=== PATIENT | male | born 1950 | race Caucasian/White ===

== ENCOUNTER 2017-08-30 12:15 | Inpatient (IN) | payer MEDICARE ==
[~2017-08-30] VITALS: Ht 172.7 cm; Wt 72.6 kg
[2017-08-30] MEDS ORDERED: ASPIRIN 325 MG TABLET ONE (12:36)
[2017-08-30] MEDS ORDERED: NITROGLYCERIN OINT 1 GM PACKET. ONE (12:36)
[2017-08-30] MEDS ORDERED: ALPRAZolam 0.25 MG TABLET ONE (12:37)
--- NOTE | 2017-08-30 12:40 | EKG ---
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
[2017-08-30 12:42] LABS: BASO # 0.1 x10^3/uL (0.0-0.2); BASO % 1 % (0-3); EOS # 0.1 x10^3/uL (0.0-0.7); EOS % 2 % (0-3); HEMATOCRIT 45.5 % (39.0-53.0); HEMOGLOBIN 16.1 g/dL (13.0-17.5); LYMPH # 2.3 x10^3/uL (1.0-4.8); LYMPH % 29 % (24-48); MEAN CORPUSCULAR HEMOGLOBIN 32 pg (25-35); MEAN CORPUSCULAR HGB CONC 35 g/dL (31-37); MEAN CORPUSCULAR VOLUME 92 fL (79-100); MONO # 0.6 x10^3/uL (0.0-1.1); MONO % 7 % (0-9); NEUT # 4.9 x10^3uL (1.8-7.7); NEUT % 62 % (31-73); PLATELET COUNT 232 x10^3/uL (140-400); RED BLOOD COUNT 4.96 x10^6/uL (4.30-5.70); RED CELL DISTRIBUTION WIDTH 13.5 % (11.5-14.5)
[2017-08-30] MEDS ORDERED: ASPIRIN 325 MG TABLET PO ONE (12:45)
[2017-08-30] MEDS ORDERED: ALPRAZolam 0.25 MG TABLET PO ONE (12:45)
[2017-08-30] MEDS ORDERED: NITROGLYCERIN OINT 1 GM PACKET. TP ONE (12:45)
--- NOTE | 2017-08-30 12:49 | RAD ---
Single view chest History:Chest pain for one day An AP view of the chest is submitted. Comparison: None. Findings: There is no significant infiltrate, pleural effusion, or pneumothorax. The pericardial cardiac silhouette is within normal limits in size. There is a tortuous thoracic aorta. Impression: There is no evidence of acute cardiopulmonary disease.
[2017-08-30 12:57] LABS: ALBUMIN 3.8 g/dL (3.4-5.0); ALBUMIN/GLOBULIN RATIO 1.1 (1.0-1.7); CALCIUM 10.1 mg/dL (8.5-10.1); GFR 74.8; POTASSIUM 3.9 mmol/L (3.5-5.1); TOTAL PROTEIN 7.4 g/dL (6.4-8.2)
[2017-08-30] MEDS ORDERED: ONDANSETRON PF 4 MG/2 ML VIAL. IV PRN (13:45)
[2017-08-30] MEDS ORDERED: ACETAMINOPHEN 325 MG TABLET PO PRN (13:45)
[2017-08-30] MEDS ORDERED: NITROGLYCERIN SUBLINGUAL 0.4 MG BOTTLE OF 25. SL PRN (13:45)
--- NOTE | 2017-08-30 13:46 | PHYS DOC ---
Adult General Chief Complaint Chief Complaint: CHEST PAIN HPI HPI Patient is a 66-year-old gentleman who has a history significant for coronary disease and has had 2 cardiac catheter in the past but has never received any stents presents here today complaining of chest pressure that started while he was shopping approximately noon time today. Patient reports that he had a cardiac catheter in [facility] by Dr. Argueta 2. The first cardiac catheterization he was told that he did not in any stents or intervention. The second catheterization which was approximately 7 years ago at the [facility] he was told that he is plaque in his artery was too long for a stent and the decision was made to put him on medical management only. Patient presents today with midsternal chest discomfort. Reports pain is been constant. Pain is not exacerbated or relieved with rest inspiration and cough. Patient reports no nausea or diaphoresis shortness of breath or vomiting. Patient denies any pain radiating to his arms or legs. Patient denies any other symptomatology. Patient has any fevers shakes chills nausea vomiting diarrhea chest pain shortness of breath cough cold rhinorrhea. Review of systems: Constitutional: Denies fever or chills Eyes: Denies change in visual acuity, redness, or eye pain HENT: Denies nasal congestion or sore throat Respiratory: Denies cough or shortness of breath All other systems were reviewed and found to be within normal limits, except as documented in this note. Physical exam: Constitutional: Well developed, well nourished, no acute distress, non-toxic appearance. HENT: Normocephalic, atraumatic, bilateral external ears normal, nose normal. Eyes: PERRLA, EOMI, conjunctiva normal, no discharge. Neck: Normal range of motion, no tenderness, supple, no stridor. Cardiovascular: Heart rate regular rhythm, Lungs & Thorax: Bilateral breath sounds clear to auscultation Abdomen: No abdominal distention. Skin: Warm, dry, no erythema, no rash. Back: Normal spinal curvature Extremities: No tenderness, no cyanosis, no clubbing, ROM intact, no edema. Neurologic: Alert and oriented X 3, normal motor function, normal sensory function, no focal deficits noted. Psychologic: Affect normal, judgement normal, mood normal. Patient's ER physical exam was most unremarkable: EKG as interpreted by ER physician reveals: Normal sinus bradycardia at [address]-T wave abnormalities. No evidence of ST elevation MO. Chest x-ray as interpreted by ER physician reveals: No infiltrates or effusions. Labs reviewed: Assessment and plan: 1. 66-year-old gentleman with atypical chest discomfort. Pain appears to be atypical nature for cardiac, GI, pleuritic chest pain. Given the patient's significant cardiac history and a significant family history for coronary disease I discussed with the family/ regarding her comfort level. Patient will be admitted to the hospital for further cardiac evaluation and consultation. Patient's enzymes and EKG here in the ED thus far are unremarkable. Patient reports that the pain is been constant with no change with the Nitropaste or aspirin. Patient's chest x-ray reveals no cause for the discomfort. Review of Systems Review of Systems Critical care time of 35 minutes reutilized and treatment and management of this patient's chest pain. Patient has significant cardiac risk factors. We have placed on the monitor we have evaluated him for any cardiac dysrhythmias. Current Medications Current Medications Current Medications Medications (Trade) Dose Ordered Sig/Radha Start Time Stop Time Status Last Admin Dose Admin Alprazolam (Xanax) 0.5 mg 1X ONCE 08/30/17 12:45 08/30/17 12:46 DC 08/30/17 12:42 0.5 MG Aspirin (Leonides Aspirin) 325 mg 1X ONCE 08/30/17 12:45 08/30/17 12:46 DC 08/30/17 12:42 325 MG Nitroglycerin (Nitro-Bid Oint) 1 inch 1X ONCE 08/30/17 12:45 08/30/17 12:46 DC 08/30/17 12:41 1 INCH Allergies Allergies Allergies Coded Allergies Type Severity Reaction Last Updated Verified No Known Drug Allergies 08/30/17 No Current Patient Data Vital Signs Vital Signs Date Time Temp Pulse Resp B/P (MAP) Pulse Ox O2 Delivery O2 Flow Rate FiO2 08/30/17 12:41 46 156/93 Lab Results Laboratory Tests Test 08/30/17 12:20 White Blood Count 8.0 x10^3/uL (4.0-11.0) Red Blood Count 4.96 x10^6/uL (4.30-5.70) Hemoglobin 16.1 g/dL (13.0-17.5) Hematocrit 45.5 % (39.0-53.0) Mean Corpuscular Volume 92 fL (79-100) Mean Corpuscular Hemoglobin 32 pg (25-35) Mean Corpuscular Hemoglobin Concent 35 g/dL (31-37) Red Cell Distribution Width 13.5 % (11.5-14.5) Platelet Count 232 x10^3/uL (140-400) Neutrophils (%) (Auto) 62 % (31-73) Lymphocytes (%) (Auto) 29 % (24-48) Monocytes (%) (Auto) 7 % (0-9) Eosinophils (%) (Auto) 2 % (0-3) Basophils (%) (Auto) 1 % (0-3) Neutrophils # (Auto) 4.9 x10^3uL (1.8-7.7) Lymphocytes # (Auto) 2.3 x10^3/uL (1.0-4.8) Monocytes # (Auto) 0.6 x10^3/uL (0.0-1.1) Eosinophils # (Auto) 0.1 x10^3/uL (0.0-0.7) Basophils # (Auto) 0.1 x10^3/uL (0.0-0.2) Sodium Level 141 mmol/L (136-145) Potassium Level 3.9 mmol/L (3.5-5.1) Chloride Level 106 mmol/L (98-107) Carbon Dioxide Level 25 mmol/L (21-32) Anion Gap 10 (6-14) Blood Urea Nitrogen 16 mg/dL (8-26) Creatinine 1.0 mg/dL (0.7-1.3) Estimated GFR (Cockcroft-Gault) 74.8 BUN/Creatinine Ratio 16 (6-20) Glucose Level 88 mg/dL (70-99) Calcium Level 10.1 mg/dL (8.5-10.1) Total Bilirubin 1.0 mg/dL (0.2-1.0) Aspartate Amino Transferase (AST) 25 U/L (15-37) Alanine Aminotransferase (ALT) 52 U/L (16-63) Alkaline Phosphatase 94 U/L (46-116) Troponin I Quantitative < 0.017 ng/mL (0-0.055) LQ-Uva-J-Type Natriuretic Peptide 53 pg/mL (0-124) Total Protein 7.4 g/dL (6.4-8.2) Albumin 3.8 g/dL (3.4-5.0) Albumin/Globulin Ratio 1.1 (1.0-1.7) EKG EKG [] Radiology/Procedures Radiology/Procedures [] Course & Med Decision Making Course & Med Decision Making Pertinent Labs and Imaging studies reviewed. (See chart for details) [] Dragon Disclaimer Dragon Disclaimer This electronic medical record was generated, in whole or in part, using a voice recognition dictation system. Departure Departure: Impression: Primary Impression: Chest pain Additional Impression: Unstable angina Disposition: ADMITTED INPATIENT Admitting Physician: Jono Martin Condition: STABLE Referrals: KRISTI BOX (PCP) Problem Qualifiers ANGELA LR MD Aug 30, 2017 13:46
[2017-08-30 14:50] VITALS: BP 124/72
[2017-08-30] MEDS: MORPHINE SULFATE 2 MG/ML DISP.SYRIN. IV PRN ×2 (15:25→20:45)
--- NOTE | 2017-08-30 16:47 | HP ---
ADMIT DATE: 08/30/2017 HISTORY OF PRESENT ILLNESS: The patient is a 66-year-old male patient who was here visiting his son, and around 11:30 this morning, he started complaining of chest pain, mostly in the lower chest and epigastric area. His pain, according to him, was constant, is not exacerbated or relieved with rest or inspiration or cough. He denied any nausea or vomiting. Denied any diaphoresis or shortness of breath or vomiting. He denied any pain radiating to his arms or legs. He was evaluated in the Emergency Room, has had his first cardiac enzyme, was less than 0.017, and apparently has had an EKG done which was unremarkable. The patient was admitted to rule out myocardial infarction. We will do 2 more sets of cardiac enzyme, consult the Cardiology team and check his fasting lipid profile. He did have another episode of chest pain while inpatient, received IV morphine and the pain has subsided. PAST MEDICAL HISTORY: Significant for hyperlipidemia, obstructive sleep apnea, cognitive impairment, benign prostatic hypertrophy. 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 ALLERGIES: He has no known drug allergies. MEDICATIONS: He is currently on following medications: He is on Tylenol 650 mg every 4 hours. He is on Namenda 10 mg twice a day, Zoloft 150 mg once a day, atorvastatin 80 mg twice a week, aspirin 81 mg tablet, he takes 2 tablets once a day. He is on omega 3 fatty acids, CoQ10, probiotic and Metamucil. FAMILY HISTORY: He is 1 of 10 children, 2 brothers are older and the rest are younger than him. There is a very strong family history of premature coronary artery disease. His father at the age of 52 because of myocardial infarction. One of his younger brothers has CABG at the age of 46 and one of his older brothers has angioplasty and stent deployment and one of his sisters has myocardial infarction. His mother at age of 84 because of congestive heart failure. SOCIAL HISTORY: He is , has 2 sons. Never smoked. Drinks alcohol occasionally. 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 REVIEW OF SYSTEMS: The patient denied any blurring of vision, cataract, glaucoma or macular degeneration. Denied any earache, tinnitus or sensorineural deafness. Denied any nosebleeds, stuffy nose or postnasal drip. Denied any sore throat, sore tongue, toothache, hoarseness of voice or difficulty swallowing. Denied any nausea, vomiting, diarrhea or constipation. Denied any hematemesis, melena or hematochezia. Denied any dysuria, frequency or hematuria. Denied any chills, rigors or fever. Did complain of chest pain, but no shortness of breath. PHYSICAL EXAMINATION: GENERAL: When I examined him, he looked well and was clearly in no apparent distress. No pallor, jaundice, cyanosis or thyromegaly. No jugular venous distension. No lower limb edema. VITAL SIGNS: His heart rate was 50, blood pressure 124/72, temperature was 97.4, respiratory rate 20, and oxygen saturation was 97% on room air. HEAD, EYES, EARS, NOSE AND THROAT: Showed normocephalic, atraumatic. NECK: Supple. HEART: Showed normal first and second heart sounds with no gallop, rub or murmur. CHEST: Clear to auscultation. No crepitation or rhonchi. ABDOMEN: Distended, soft, nontender. No guarding or rigidity. No organomegaly. All hernial orifices intact. Bowel sounds normal. NEUROLOGIC: He was awake, alert, responding appropriately, although, he clearly has marked cognitive impairment and poor memory. All his cranial nerves are intact. He moves extremities without difficulty, ambulates without assistance or assistive devices. LABORATORY DATA: While in the Emergency Room, he has lab work done, which showed a white cell count of 8000, hemoglobin 16, hematocrit 46, MCV 92, and platelet count 232,000. His serum sodium was 141, potassium 3.9, chloride 106, bicarbonate 25, anion gap of 10, BUN 16, creatinine 1. Estimated GFR was 74 mL per minute. His glucose was 88, calcium was 7.1. Total bilirubin, AST, ALT, alkaline phosphatase were normal. His total protein was 7.4, albumin 3.8. First set of troponin was less than 0.017. His chest x-ray showed that there is no significant infiltrate, pleural effusion, pneumothorax. The cardiac silhouette is within normal limits in size. There is a tortuous thoracic aorta. PLAN: To do 2 more sets of cardiac enzymes, check his fasting lipid profile tomorrow and consult the cardiology team and decide on further management accordingly. TERRELL ORDONEZ MD DR: PEYTON/boy JOB#: [id number] / [id number]
[2017-08-30] MEDS ORDERED: ASPI81TA50 PO (16:52)
[2017-08-30] MEDS ORDERED: FISH12002 PO (16:52)
[2017-08-30] MEDS ORDERED: LACT1CAP6 PO (16:52)
[2017-08-30] MEDS ORDERED: LIPITOR80 MG PO ×2 (16:52)
[2017-08-30] MEDS ORDERED: MEMA10TA PO (16:52)
[2017-08-30] MEDS ORDERED: MULT1TAB52 PO (16:52)
[2017-08-30] MEDS ORDERED: PSYL0.4C PO (16:52)
[2017-08-30] MEDS ORDERED: CRAN500T2 PO (16:52)
[2017-08-30] MEDS ORDERED: SERT100T PO (16:52)
[2017-08-30] MEDS ORDERED: UBID100C26 PO ×2 (16:52)
[2017-08-30] MEDS ORDERED: POLY17PO5 PO (16:52)
--- NOTE | 2017-08-30 17:12 | EKG ---
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
[2017-08-30 19:43] VITALS: BP 118/56
[2017-08-30] MEDS: MEMANTINE 5 MG TABLET. PO SCH (20:44)
[2017-08-30] MEDS: ASPIRIN ENTERIC COATED 81 MG TABLET.DR. PO SCH (20:44)
[2017-08-30] MEDS ORDERED: POLYETHYLENE GLYCOL 3350 17 GM PACKET. PO ONE (21:00)
[2017-08-30] MEDS ORDERED: PSYLLIUM SEED (WITH SUGAR) PACKET. PO ONE (21:00)
[2017-08-30] MEDS ORDERED: OMEGA-3 FATTY ACIDS/FISH OIL 1,000 MG CAPSULE. PO SCH (21:00)
[2017-08-30] MEDS ORDERED: LACTOBACILLUS RHAMNOSUS GG 1 CAPSULE. PO SCH (21:00)
[2017-08-30 23:17] VITALS: BP 109/63
[2017-08-31 05:50] VITALS: BP 119/66
[2017-08-31 06:07] LABS: CALCIUM 8.5 mg/dL (8.5-10.1); CREATININE 0.6 mg/dL (0.7-1.3); GFR 134.8
[2017-08-31 06:18] LABS: POTASSIUM 4.3 mmol/L (3.5-5.1)
[2017-08-31] MEDS: MEMANTINE 5 MG TABLET. PO SCH (08:33)
[2017-08-31] MEDS: ASPIRIN ENTERIC COATED 81 MG TABLET.DR. PO SCH (08:33)
[2017-08-31] MEDS: MORPHINE SULFATE 2 MG/ML DISP.SYRIN. IV PRN (08:34)
[2017-08-31] MEDS ORDERED: FLU VACC QS2017-18 (36MOS+)/PF 0.5 ML SYRINGE. VAX IM ONE (09:00)
[2017-08-31] MEDS ORDERED: PSYLLIUM SEED (WITH SUGAR) PACKET. PO SCH (09:00)
[2017-08-31] MEDS ORDERED: SERTRALINE 50 MG TABLET. PO SCH (09:00)
[2017-08-31] MEDS ORDERED: PNEUMOCOCCAL VAX SCREEN. MC ONE (09:00)
[2017-08-31] MEDS ORDERED: MULTIVITAMIN with MINERAL TABLET. PO SCH (09:00)
[2017-08-31] MEDS ORDERED: NON FORMULARY ITEM (Cranberry Extract (Cranberry) 500 MG) PO SCH (09:00)
[2017-08-31] MEDS ORDERED: Influenza vaccine per PROTOCOL. MC PRN (09:00)
[2017-08-31] MEDS ORDERED: POLYETHYLENE GLYCOL 3350 17 GM PACKET. PO SCH (09:00)
[2017-08-31 11:16] VITALS: BP 118/65
--- NOTE | 2017-08-31 12:58 | CONS ---
DATE OF CONSULTATION: 08/30/2017 REASON FOR CONSULTATION: Chest pain. HISTORY OF PRESENT ILLNESS: The patient is a 66-year-old male with past medical history as noted below, who presents to the hospital with some chest discomfort. He reports he was in his usual state of health and yesterday afternoon began to notice some increase in salivary secretions, which then prompted some burning across his throat and into the mid chest and some pressure-like sensation. Since this was concerning to him in light of his prior history he presented to the ER. Initial ER evaluation did not reveal any significant troponin elevation and his EKG was unremarkable. He was admitted for ACS rule out. Overnight, he has had 2 to 3 doses of morphine and nitroglycerin, which appears to have relieved his symptomatology. He does continue to have some mild chest pressure about 2/10. The patient also reports increasing fatigue over the course of the last several months to couple of years. He denies any syncope or palpitations. He reports compliance with his medications. PAST MEDICAL HISTORY: 1. Coronary artery disease with heart cath in 2011 revealing moderate nonobstructive disease. 2. Dyslipidemia. 3. Minimal hypertension. 4. Mild dementia. SOCIAL HISTORY: The patient denies any alcohol, tobacco or illicit drug use. 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 FAMILY HISTORY: Notable for early atherosclerotic coronary artery disease with deaths in the family members at age 50 or so. ALLERGIES: No known drug allergies. CURRENT CARDIOVASCULAR MEDICATIONS: 1. Atorvastatin 80 mg daily. 2. Aspirin 81 mg daily. REVIEW OF SYSTEMS: Negative for 10 out of 14 systems reviewed, unless otherwise mentioned above in HPI. PHYSICAL EXAMINATION: VITAL SIGNS: Afebrile, 60, 20, 118/65, 96% on room air. GENERAL: He is alert and oriented, in no acute distress. HEAD AND NECK: Unremarkable. CARDIAC: Regular rate and rhythm without any murmurs, rubs, or gallops. LUNGS: Clear to auscultation bilaterally. ABDOMEN: Soft, nontender, nondistended. EXTREMITIES: Without any clubbing, cyanosis or edema. 2+ radial and 1+ dorsalis pedis pulses. NEUROLOGIC: No focal deficits. DIAGNOSTIC STUDIES: Cardiac enzymes negative x 3, creatinine 0.6, hemoglobin 16.1, and platelets 232. Chest x-ray is unremarkable. EKG suggests prior inferior infarct with sinus rhythm. IMPRESSION: Typical chest pain with features suggestive of unstable angina. Differential diagnosis includes gastroesophageal reflux disease. In light of the fact that the patient has had previous moderate nonobstructive coronary disease and given this risk factors including family history, age and male gender would favor more invasive approach to rule out any significant pathology. I did discuss with the patient option of noninvasive imaging as well given that he has a low risk presentation with negative biomarkers and no significant EKG changes. The patient's family member is a substation operator apprentice at and they wish to be transferred to for further assessment and treatment. No contra indication or transfer at this time. Thank you for this consultation. ABDOUL SANTA MD DR: KALEY/boy JOB#: [id number] / [id number]
--- NOTE | 2017-08-31 14:00 | DS ---
DATE OF DISCHARGE: 08/31/2017 DISCHARGE/TRANSFER SUMMARY HOSPITAL COURSE: This is a 66-year-old male patient who was admitted with a recurrent episode of chest pain described as a pressure-like sensation in his epigastric area. He was admitted and has had 3 sets of cardiac enzymes that ruled out myocardial infarction. He continued to have chest pain that required a nitroglycerin and morphine and basically his requested to transfer him to [facility] and we contacted the transfer center and he was accepted as a transfer to be seen by Dr. 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 PHYSICAL EXAMINATION: GENERAL: When I examined him this afternoon, he looked well and was clearly in no apparent respiratory distress, pale, but no jaundice, cyanosis, or thyromegaly. No jugular venous distention. No limb edema. VITAL SIGNS: His heart rate was 60, blood pressure was 118/65, temperature was 98.1, respiratory rate was 20, and oxygen saturation was 96%. HEAD, EYES, EARS, NOSE AND THROAT: Normocephalic, atraumatic. NECK: Supple. HEART: Showed normal first and second heart sounds with no gallop, rub or murmur. CHEST: Clear to auscultation. No crepitation or rhonchi. ABDOMEN: Distended, soft, nontender. NEUROLOGIC: He has marked cognitive impairment, poor memory, but otherwise no obvious lateralizing sign. His intake and output were incompletely recorded. LABORATORY DATA: Showed a white cell count of 8000, hemoglobin 16, hematocrit 45, MCV 92, and platelet count 232,000. His chemistry showed a serum sodium 144, potassium 4.3, chloride 108, bicarbonate 31, anion gap of 5, BUN 18, creatinine 0.6, estimated GFR was 134 mL per minute. His glucose was 103, calcium was 8.5. His serum triglycerides 161, total cholesterol was 145, LDL cholesterol was 73, VLDL was 32, and HDL was 40 with a ratio of 3. He has 3 sets of cardiac enzymes that ruled out myocardial infarction. FINAL DISCHARGE DIAGNOSES: 1. Coronary artery disease, which was catheterized twice. 2. History of hyperlipidemia. 3. Mild dementia. TERRELL ORDONEZ MD DR: PEYTON/boy JOB#: [id number] / [id number]
[2017-08-31] MEDS ORDERED: ATORVASTATIN CALCIUM 20 MG TABLET PO SCH (21:00)
[2017-08-31] MEDS ORDERED: UBIDECARENONE 50 MG CAPSULE. PO SCH (21:00)
[2017-09-04] MEDS ORDERED: NON FORMULARY ITEM (Ubidecarenone (Coq-10) 100 MG) PO SCH (16:00)
[2017-09-04] MEDS ORDERED: ATORVASTATIN CALCIUM PO SCH (16:00)
== END 2017-08-31 12:47 | disposition short-term general hospital (02) | DRG 303 ==
LOC: ER 12:15 → 1 SOUTH 14:49
PROVIDERS: ADMIT Internal Medicine; ATTEND Internal Medicine
DX: I25.110 Atherosclerotic heart disease of native coronary artery with unstable angina pectoris (principal); F03.90 Unspecified dementia, unspecified severity, without behavioral disturbance, psychotic disturbance, mood disturbance, and anxiety; E78.5 Hyperlipidemia, unspecified; G47.33 Obstructive sleep apnea (adult) (pediatric); I10 Essential (primary) hypertension; N40.0 Benign prostatic hyperplasia without lower urinary tract symptoms; Z82.49 Family history of ischemic heart disease and other diseases of the circulatory system; Z98.61 Coronary angioplasty status; Z79.899 Other long term (current) drug therapy
CPT/HCPCS: 36415; 71010; 80048; 80053; 80061; 83880; 84484; 85025; 93005; J2270; 99285-25